=== PATIENT | female | born 1955 | race Caucasian/White ===

== ENCOUNTER → 2016-08-22 | Outpatient (CLI) | payer OTHER ==
[~2016-08-22] MED LIST: AMLO5 PO; DIOV160T6 PO; DIOV160T60 PO; FEXO15TA PO; FEXO180 PO; FLUT1SPR5 EACH NARE; FLUT1SPR9; FURO1TAB60 PO; FURO1TAB93 PO; LIPI10TA PO; NORV5TAB PO
[2016-08-22 13:16] LABS: AUTOMATED NEUTROPHIL # 5.7 TH/MM3 (1.8-7.7); BASOPHIL # 0.1 TH/MM3 (0-0.2); BASOPHIL % 0.9 % (0.0-2.0); EOSINOPHIL # 0.1 TH/MM3 (0-0.4); EOSINOPHIL % 1.4 % (0.0-4.0); HEMATOCRIT 46.7 % (35.0-46.0); HEMO FLAGS DIFF FINAL; LYMPH % 21.5 % (9.0-44.0); LYMPHOCYTE # 1.8 TH/MM3 (1.0-4.8); MEAN CELL VOLUME 90.1 FL (80.0-100.0); MEAN CORPUSCULAR HEMOGLOBIN 29.7 PG (27.0-34.0); MEAN CORPUSCULAR HGB CONC 32.9 % (32.0-36.0); MONO % 7.8 % (0.0-8.0); NEUT % 68.4 % (16.0-70.0); PLATELET COUNT 235 TH/MM3 (150-450); RED BLOOD COUNT 5.18 MIL/MM3 (4.00-5.30); RED CELL DISTRIBUTION WIDTH 13.6 % (11.6-17.2); WHITE BLOOD COUNT 8.3 TH/MM3 (4.0-11.0)
[2016-08-22 13:39] LABS: ALT (GPT) 22 U/L (10-53); ANION GAP 6 MEQ/L (5-15); AST (GOT) 11 U/L (15-37); BLOOD UREA NITROGEN 11 MG/DL (7-18); CHLORIDE 108 MEQ/L (98-107); GLOMERULAR FILTRATION RATE 76 ML/MIN (>89); GLUCOSE,FASTING 89 MG/DL (74-99); POTASSIUM 4.3 MEQ/L (3.5-5.1); SODIUM (NA) 142 MEQ/L (136-145)
[2016-08-22 13:41] LABS: ALKALINE PHOSPHATASE 88 U/L (45-117); TOTAL BILIRUBIN ADULT 0.4 MG/DL (0.2-1.0)
== END ==
LOC: PLAB 10:24
PROVIDERS: ATTEND Family Medicine
DX: Z00.00 Encounter for general adult medical examination without abnormal findings (principal)
CPT/HCPCS: 80053; 85025

== ENCOUNTER → 2016-08-24 | Day surgery (SDC) | payer OTHER ==
[~2016-08-24] VITALS: Ht 164.5 cm; Wt 75.3 kg
[~2016-08-24] MED LIST changes: +ACETAMINOPHEN 1000 MG/100 ML VIAL IV ONE; +ACETAMINOPHEN 500 MG CPLT PO PRN; +ACETYLCHOLINE CHL OPHT SOLN 1:100 2 ML VIAL ONE; +ATROPINE SULFATE 1% OPHT SOLN 2 ML BTL ONE; +BALANCED SALT SOLN OPHT IRRIG 15 ML BTL ONE; +DEXAMETHASONE SOD PHOS 20 MG/5 ML VIAL ONE; +EPINEPHrine HCL (1:1000) 1 MG/ML VIAL ONE; +FAMOTIDINE 20 MG/2 ML VIAL ONE; +INSULIN HUMAN REGULAR 1,000 UNITS/10 ML VIAL SQ PRN; +LACTATED RINGER'S 1000 ML IV SCH; +METOPROLOL TARTRATE 25 MG TAB PO PRN; +MIDAZOLAM HCL 2 MG/2 ML VIAL ONE; +ONDANSETRON HCL 4 MG/2 ML VIAL IM PRN; +ONDANSETRON HCL 4 MG/2 ML VIAL IV PUSH ONE; +PROPOFOL 200 MG/20 ML AMP IV ONE; +SODIUM CHLORID 0.9% 500 ML IV SCH; +STERILE WATER FOR INJ 20 ML VIAL ONE; +TOBRAMYCIN/DEXAMETHASONE OPTH OINT 3.5 GM TUBE ONE; +TRIAMCINOLONE ACETONIDE/PF 40 MG/ML OPTH VIAL ONE; +ceFAZolin INJ 1,000 MG VIAL ONE; +oxyCODONE/ACETAMINOPHEN 5 MG/325 MG TAB PO PRN
[2016-08-24 07:06] VITALS: BP 139/86; PULSE 74; RESP 16; TEMP 98.2; O2SAT 98
[2016-08-24] MEDS: PHENYLEPHRINE HCL 2.5% OPTH SOLN 2 ML BTL LEFT EYE SCH ×3 (07:15→07:50)
[2016-08-24] MEDS: CYCLOPENTOLATE HCL 1% OPHT SOLN 2 ML BTL LEFT EYE SCH ×3 (07:15→07:50)
[2016-08-24] MEDS: TROPICAMIDE 1% OPTH SOLN 2 ML BTL LEFT EYE SCH ×3 (07:15→07:50)
[2016-08-24] MEDS: ATROPINE SULFATE 1% OPHT SOLN 5 ML BTL LEFT EYE SCH ×2 (07:30→07:50)
[2016-08-24 11:10] VITALS: BP 134/86; PULSE 72; RESP 17; TEMP 98.4; O2SAT 96
--- NOTE | 2016-08-30 06:54 | MP ---
cc: NICHOL NEGRO M.D. DATE OF SURGERY 08/24/2016 PREOPERATIVE DIAGNOSIS Vitreous debris, iris adhesions left eye POSTOPERATIVE DIAGNOSIS Vitreous debris, iris adhesions left eye PROCEDURE Trans pars plana vitrectomy with the lysis of irido-synechia and focal Endolaser photocoagulation, left eye. SURGEON Dr. 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 She was treated with limited vitrectomy due to visualization, but injection of antibiotics and recovered. She has had several episodes of inflammation occurring afterwards and it was thought that it may be due to a small amount of retained lens material or to the iris adhesions that keep her pupil in a regular dilated state. She was treated conservatively when the inflammation episodes occurred with cycloplegia and topical steroids, but after the third episode, she wishes to proceed with this surgery to try and prevent any further ocular inflammation episodes. She was consented for the vitrectomy and lysis of iris adhesions. The risks and benefits of surgery were discussed with the patient and no guarantee was made as to visual outcome. PROCEDURE She was brought to [facility] operating room one and placed on the operating table. Appropriate anesthesia monitoring devices were applied. She was placed under general anesthesia using a laryngeal mask. The left eye was identified as the operative site and then prepped and draped in the usual sterile fashion. A lid speculum was placed. The microscope was brought around and adjusted. At this point an appropriate time-out was called and the surgical team agreed to the surgical procedure and surgical site. Using the 23 gauge Jamison on a vitrectomy system, the trocar cannulas were placed 3-1/2 mm posterior to the limbus after first displacing the conjunctiva and with a beveled entrance. The first was placed at approximately 3 o'clock and verified to be in the posterior chamber. An infusion cannula was affixed to it and turned on. Two additional cannulas were placed at 10 at 2 o'clock. The eye was entered with the Endo-steam clean machine operator light pipe and vitrectomy cutter. Using the wide-angle viewing system, a vitrectomy was carried out. There was a membrane which was seen on the OCT preoperatively that was hovering over the macula and this was engaged with the soft-tipped linear extrusion needle and elevated. However, at its temporal adhesion, a small amount of bleeding occurred and there could have been a small rip outside the fovea on the temporal side. This area was treated prophylactically with endolaser photocoagulation with a power of 150 milliwatts and 0.05-second exposure with a total of 20 laser treatments placed. Next, the plugs were placed back in the eye and the fundus was inspected with scleral depression. No retinal breaks were found and the retina was attached 360 degrees. Next, attention was drawn to the anterior segment where using a 30 gauge needle through the limbus on a TB syringe, the adhesions down at 5 o'clock and at 1 o'clock were lysed, then Miochol was injected into the anterior chamber and the pupil did constrict and did appear round in configuration which was different then previous to these maneuvers. The procedure was then ended by taking out cannulas and tamponade of the site after a small amount of air-fluid exchange was performed. The sites were tamponaded as the cannulas were removed and the overlying conjunctival wound was treated with diathermy. There were no visible air leaks. The eye was soft but formed. Therefore, the lid speculum was removed after injecting 125 mg of Ancef in a half cc and Decadron 2 mg in half cc. No Atropine was used during this procedure. Once the lid speculum was removed and the patient was undraped, TobraDex ointment was placed on the cornea and she was patched and shielded. She had the laryngeal mass removed in the room and was returned to recovery in good condition laying on her right side. MD KEMAL Pierre/ABRAHAM /2:07 PM /6:41 AM
== END | disposition home or self-care (01) ==
LOC: HSDC 06:28
PROVIDERS: ATTEND Ophthalmology
DX: T85.29XS Other mechanical complication of intraocular lens, sequela (principal); H21.512 Anterior synechiae (iris), left eye; I10 Essential (primary) hypertension; E78.00 Pure hypercholesterolemia, unspecified; H44.75 Retained (nonmagnetic) (old) foreign body in vitreous body
CPT/HCPCS: 00145; 65870; 67039; J0131; J0171; J0690; J1100; J2250; J2405; J3010; J3300; J7120

== ENCOUNTER → 2017-01-12 | Outpatient (CLI) | payer OTHER ==
[~2017-01-12] MED LIST changes: -ACETAMINOPHEN 1000 MG/100 ML VIAL IV ONE; -ACETAMINOPHEN 500 MG CPLT PO PRN; -ACETYLCHOLINE CHL OPHT SOLN 1:100 2 ML VIAL ONE; -ATROPINE SULFATE 1% OPHT SOLN 2 ML BTL ONE; -BALANCED SALT SOLN OPHT IRRIG 15 ML BTL ONE; -DEXAMETHASONE SOD PHOS 20 MG/5 ML VIAL ONE; -DIOV160T60 PO; -EPINEPHrine HCL (1:1000) 1 MG/ML VIAL ONE; -FAMOTIDINE 20 MG/2 ML VIAL ONE; -FEXO180 PO; -FLUT1SPR9; -FURO1TAB93 PO; -INSULIN HUMAN REGULAR 1,000 UNITS/10 ML VIAL SQ PRN; -LACTATED RINGER'S 1000 ML IV SCH; -METOPROLOL TARTRATE 25 MG TAB PO PRN; -MIDAZOLAM HCL 2 MG/2 ML VIAL ONE; -NORV5TAB PO; -ONDANSETRON HCL 4 MG/2 ML VIAL IM PRN; -ONDANSETRON HCL 4 MG/2 ML VIAL IV PUSH ONE; -PROPOFOL 200 MG/20 ML AMP IV ONE; -SODIUM CHLORID 0.9% 500 ML IV SCH; -STERILE WATER FOR INJ 20 ML VIAL ONE; -TOBRAMYCIN/DEXAMETHASONE OPTH OINT 3.5 GM TUBE ONE; -TRIAMCINOLONE ACETONIDE/PF 40 MG/ML OPTH VIAL ONE; -ceFAZolin INJ 1,000 MG VIAL ONE; -oxyCODONE/ACETAMINOPHEN 5 MG/325 MG TAB PO PRN
[2017-01-12 13:50] LABS: ALT (GPT) 26 U/L (10-53); ANION GAP 6 MEQ/L (5-15); AST (GOT) 14 U/L (15-37); BLOOD UREA NITROGEN 10 MG/DL (7-18); CHLORIDE 107 MEQ/L (98-107); GLOMERULAR FILTRATION RATE 70 ML/MIN (>89); GLUCOSE,FASTING 82 MG/DL (74-99); POTASSIUM 4.2 MEQ/L (3.5-5.1); SODIUM (NA) 142 MEQ/L (136-145)
[2017-01-12 13:59] LABS: ALKALINE PHOSPHATASE 101 U/L (45-117); HDL CHOLESTEROL 72.9 MG/DL (40.0-60.0); LDL CHOLESTEROL 78 MG/DL (0-99); TOTAL BILIRUBIN ADULT 0.3 MG/DL (0.2-1.0)
== END ==
LOC: PLAB 11:13
PROVIDERS: ATTEND Family Medicine
DX: I10 Essential (primary) hypertension (principal); E78.5 Hyperlipidemia, unspecified
CPT/HCPCS: 36415; 80053; 80061; 84443

== ENCOUNTER → 2017-04-16 | Outpatient (CLI) | payer OTHER ==
[~2017-04-16] VITALS: Ht 163.8 cm; Wt 79.1 kg
[~2017-04-16] MED LIST changes: +CHLORHEXIDINE GLUCONATE 2 % 1 PACK (2 CLOTHS) TOPICAL PRN; +DEXT 5%-NACL 0.9% 1000 ML INJ 1,000 ML IV SCH; +DEXTROSE 5% IN WATE 1000ML INJ 1,000 ML IV SCH; +INSULIN HUMAN REGULAR 1,000 UNITS/10 ML VIAL SQ PRN; +LACTATED RINGER'S 1000 ML IV PRN; +METOPROLOL TARTRATE 25 MG TAB PO PRN; +POVIDONE IODINE 5% (ANTISEPSIS KIT) 4 APPLICATIONS EACH NARE PRN; +PROPOFOL 200 MG/20 ML AMP IV ONE; +SODIUM CHLORID 0.9% 500 ML IV PRN
--- NOTE | 2017-04-16 14:04 | GIPROC ---
[facility] [address] [facility]. [facility], [id number] COLONOSCOPY PROCEDURE REPORT EXAM DATE: 04/16/2017 PATIENT NAME: Marcia Salgado MR #: [id number] BIRTHDATE: 1955 ENDOSCOPIST: Kelly Dang MD ORDER #: [id number] TRACTOR MECHANIC: Ashu Jimenez and German Bunn STATUS: outpatient INDICATIONS: The patient is a 61 yr old female here for a colonoscopy due to personal history of polyps, screening. PROCEDURE PERFORMED: Total colonoscopy with polypectomy with biopsy forceps. MEDICATIONS: See Anesthesia Record ESTIMATED BLOOD LOSS: None CONSENT: The patient understands the risks and benefits of the procedure and understands that these risks include, but are not limited to: sedation, allergic reaction, infection, perforation and/or bleeding. Alternative means of evaluation and treatment include, among others: physical exam, x-rays, and/or surgical intervention. The patient elects to proceed with this endoscopic procedure. DESCRIPTION OF PROCEDURE: checked for proper function. Hand hygiene and appropriate measures for infection prevention was taken. After the risks, benefits and alternatives of the procedure were thoroughly explained, Informed consent was verified, confirmed and timeout was successfully executed by the treatment team. A digital exam was performed. The endoscope was introduced through the anus and advanced to the cecum, which was identified by the appendiceal orifice, tri-radiate valve, and ileocecal valve. The prep quality was good. The instrument was then slowly withdrawn as the colon was fully examined. There were no mucosal abnormalities noted with the cecum, ascending colon, transverse colon, or descending colon. In the sigmoid colon, a 2-3 mm polyp was visualized and removed with biopsy forceps. There were no abnormalities noted in the rectum. The scope was then completely withdrawn from the patient and the procedure terminated. ADVERSE EVENTS: There were no complications. WITHDRAWL TIME: DEGREE OF DIFFICULTY: IMPRESSIONS: Normal Colon RECOMMENDATIONS: Followup colonoscopy 5 years PATIENT CONDITION: Stable DISPOSITION: Home RECALL: 5 years Kelly Dang MD eSigned: Kelly Dang MD 04/16/2017 2:03 PM cc: Dr. Owen
[2017-04-16 14:40] VITALS: BP 173/86; PULSE 79; RESP 18; TEMP 97.5; O2SAT 97
--- NOTE | 2017-04-17 14:08 | EKG ---
Date Performed: 04/16/2017 Time Performed: 11:48:44 PTAGE: 61 years EKG: Sinus rhythm MINIMAL ST DEPRESSION BORDERLINE ECG Compared to prior tracing no significant change PREVIOUS TRACING : 12/16/2015 12.48 DOCTOR: Albert Escobedo Interpretating Date/Time 04/17/2017 14:06:22
== END ==
LOC: HEND 11:26
PROVIDERS: ATTEND Colon & Rectal Surgery
DX: Z12.11 Encounter for screening for malignant neoplasm of colon (principal); Z86.010 Personal history of colon polyps; D12.5 Benign neoplasm of sigmoid colon; R94.31 Abnormal electrocardiogram [ECG] [EKG]
CPT/HCPCS: 88305; 93005

== ENCOUNTER → 2017-04-23 | Outpatient (CLI) | payer OTHER ==
[~2017-04-23] MED LIST changes: -CHLORHEXIDINE GLUCONATE 2 % 1 PACK (2 CLOTHS) TOPICAL PRN; -DEXT 5%-NACL 0.9% 1000 ML INJ 1,000 ML IV SCH; -DEXTROSE 5% IN WATE 1000ML INJ 1,000 ML IV SCH; -INSULIN HUMAN REGULAR 1,000 UNITS/10 ML VIAL SQ PRN; -LACTATED RINGER'S 1000 ML IV PRN; -METOPROLOL TARTRATE 25 MG TAB PO PRN; -POVIDONE IODINE 5% (ANTISEPSIS KIT) 4 APPLICATIONS EACH NARE PRN; -PROPOFOL 200 MG/20 ML AMP IV ONE; -SODIUM CHLORID 0.9% 500 ML IV PRN
[2017-04-23 12:03] LABS: BASOPHIL # 0.1 TH/MM3 (0-0.2); BASOPHIL % 0.7 % (0.0-2.0); EOSINOPHIL # 0.1 TH/MM3 (0-0.4); HEMATOCRIT 44.7 % (35.0-46.0); HEMO FLAGS DIFF FINAL; LYMPH % 18.7 % (9.0-44.0); LYMPHOCYTE # 1.6 TH/MM3 (1.0-4.8); MEAN CELL VOLUME 90.1 FL (80.0-100.0); MEAN CORPUSCULAR HEMOGLOBIN 29.7 PG (27.0-34.0); MEAN CORPUSCULAR HGB CONC 32.9 % (32.0-36.0); MONO % 6.9 % (0.0-8.0); NEUT % 72.7 % (16.0-70.0); PLATELET COUNT 214 TH/MM3 (150-450); RED BLOOD COUNT 4.95 MIL/MM3 (4.00-5.30); RED CELL DISTRIBUTION WIDTH 13.6 % (11.6-17.2); WHITE BLOOD COUNT 8.3 TH/MM3 (4.0-11.0)
[2017-04-23 12:09] LABS: ANION GAP 7 MEQ/L (5-15); BICARBONATE 27.1 MEQ/L (21.0-32.0); CHLORIDE 105 MEQ/L (98-107); POTASSIUM 3.6 MEQ/L (3.5-5.1); SODIUM (NA) 139 MEQ/L (136-145)
[2017-04-23 12:31] LABS: ALKALINE PHOSPHATASE 94 U/L (45-117); ALT (GPT) 24 U/L (10-53); AST (GOT) 17 U/L (15-37); BLOOD UREA NITROGEN 11 MG/DL (7-18); GLOMERULAR FILTRATION RATE 68 ML/MIN (>89); GLUCOSE,FASTING 100 MG/DL (74-99); HDL CHOLESTEROL 67.9 MG/DL (40.0-60.0); LDL CHOLESTEROL 74 MG/DL (0-99); TOTAL BILIRUBIN ADULT 0.3 MG/DL (0.2-1.0)
[2017-04-23 14:01] LABS: HEMOGLOBIN A1a 1.3 %; HEMOGLOBIN A1b 0.7 %; HEMOGLOBIN Ao 83.9 %; HEMOGLOBIN LA1C 2.2 %; HEMOGLOBIN P3 3.7 %
== END ==
LOC: PLAB 09:30
PROVIDERS: ATTEND Family Medicine
DX: F41.9 Anxiety disorder, unspecified (principal); I10 Essential (primary) hypertension; R73.9 Hyperglycemia, unspecified; E04.1 Nontoxic single thyroid nodule; E88.81 Metabolic syndrome and other insulin resistance; E66.9 Obesity, unspecified; Z78.0 Asymptomatic menopausal state
CPT/HCPCS: 80053; 80061; 83036; 84443; 85025

== ENCOUNTER → 2017-10-31 | Outpatient (CLI) | payer OTHER ==
[2017-10-31 14:29] LABS: ALBUMIN 3.9 GM/DL (3.4-5.0); BICARBONATE 25.9 MEQ/L (21.0-32.0); BLOOD UREA NITROGEN 12 MG/DL (7-18); CALCIUM 8.7 MG/DL (8.5-10.1); CHLORIDE 107 MEQ/L (98-107); GLUCOSE,FASTING 90 MG/DL (74-99); SODIUM (NA) 140 MEQ/L (136-145)
[2017-10-31 14:30] LABS: ALT (GPT) 31 U/L (10-53); AST (GOT) 22 U/L (15-37); CREATININE 0.83 MG/DL (0.50-1.00); GLOMERULAR FILTRATION RATE 69 ML/MIN (>89)
[2017-10-31 14:38] LABS: ALKALINE PHOSPHATASE 87 U/L (45-117); CHOLESTEROL 181 MG/DL (120-200); CHOLESTEROL/ HDL RATIO 2.53 RATIO; HDL CHOLESTEROL 71.5 MG/DL (40.0-60.0); LDL CHOLESTEROL 91 MG/DL (0-99); TOTAL BILIRUBIN ADULT 0.5 MG/DL (0.2-1.0); TOTAL PROTEIN 7.2 GM/DL (6.4-8.2); TRIGLYCERIDES 92 MG/DL (42-150)
[2017-10-31 20:45] LABS: HEMOGLOBIN A1C 5.9 % (4.3-6.0)
== END ==
LOC: PLAB 11:04
PROVIDERS: ATTEND Family Medicine
DX: I10 Essential (primary) hypertension (principal); R73.9 Hyperglycemia, unspecified; E04.1 Nontoxic single thyroid nodule
CPT/HCPCS: 36415; 80053; 80061; 83036; 84443